=== PATIENT | male | born 1985 | race American Indian/Alaskan Native ===

== ENCOUNTER 2021-11-08 15:21 | Emergency (ER) | payer SELFPAY ==
[2021-11-08 15:33] VITALS: BP 141/96
--- NOTE | 2021-11-09 15:33 | Emergency Department Report ---
ED Chest Pain HPI - General Chief Complaint: Anxiety Stated Complaint: MH EVALUATION Source: patient, EMS Mode of arrival: Stretcher Limitations: No Limitations - Related Data Allergies Allergy/AdvReac Type Severity Reaction Status Date / Time No Known Allergies Allergy Verified 11/08/21 15:34 ED Review of Systems ROS: Stated complaint: MH EVALUATION Other details as noted in HPI ED Physical Exam - General Limitations: No Limitations ED Course Vital Signs 11/08/21 15:30 Temperature 98 F Pulse Rate 96 H Respiratory 18 Rate Blood Pressure 141/96 [Left] O2 Sat by Pulse 99 Oximetry Critical care attestation.: If time is entered above; I have spent that time in minutes in the direct care of this critically ill patient, excluding procedure time. ED Disposition Disposition: LEFT AWOL/ELOPED Condition: Stable Referrals: PRIMARY CARE, [Primary Care Provider] - 3-5 Days
== END 2021-11-08 22:55 | disposition left against medical advice (07) ==
LOC: ED 15:21
DX: Z00.8 Encounter for other general examination (principal); Z53.21 Procedure and treatment not carried out due to patient leaving prior to being seen by health care provider